=== PATIENT | female | born 1990 | race Caucasian/White ===

== ENCOUNTER 2021-03-07 19:14 | Emergency (ER) | payer OTHER ==
[~2021-03-07] VITALS: Ht 162.6 cm; Wt 57.3 kg
[2021-03-07] MEDS ORDERED: diphenhydrAMINE 50 MG/ML VIAL IVP ONE (19:30)
[2021-03-07] MEDS ORDERED: IV RINGERS SOLUTION,LACTATED 1,000 ML IV ONE (19:30)
[2021-03-07] MEDS ORDERED: METOCLOPRAMIDE HCL 10 MG/2 ML VIAL. IVP ONE (19:30)
--- NOTE | 2021-03-07 19:33 | PHYS DOC ---
Adult General HPI HPI Patient is a otherwise healthy 30-year-old G4, P3 who presents at approximately 6 weeks gestation with a chief complaint of morning sickness/nausea and vomiting. States he has had this with all of her other pregnancies. States it started this morning when she woke up and has not been able to eat because when she smells food she will vomit. States she did not have any medicine at home. States she does have an OB appointment next week. Denies any recent traumas, travels, illnesses, fevers, chest pain, shortness of breath, abdominal pain, dysuria, hematuria, blood in the stool or diarrhea. Denies any vaginal bleeding, discharge or pain. States she is having some nausea and vomiting but no abdominal pain. Review of Systems Review of Systems Constitutional: Denies fever or chills [] Eyes: Denies change in visual acuity, redness, or eye pain [] HENT: Denies nasal congestion or sore throat [] Respiratory: Denies cough or shortness of breath [] Cardiovascular: No additional information not addressed in HPI [] GI: Denies abdominal pain, nausea, vomiting, bloody stools or diarrhea [] : Denies dysuria or hematuria [] Musculoskeletal: Denies back pain or joint pain [] Integument: Denies rash or skin lesions [] Neurologic: Denies headache, focal weakness or sensory changes [] Endocrine: Denies polyuria or polydipsia [] All other systems were reviewed and found to be within normal limits, except as documented in this note. Physical Exam Physical Exam Constitutional: Well developed, well nourished, no acute distress, non-toxic appearance. [] HENT: Normocephalic, atraumatic, oropharynx moist, Eyes: conjunctiva normal, no discharge. [] Neck: Normal range of motion, no tenderness, supple, no stridor. [] Cardiovascular:Heart rate regular rhythm, no murmur [] Lungs & Thorax: Bilateral breath sounds clear to auscultation [] Abdomen: soft, no tenderness, no masses, no pulsatile masses. [] Skin: Warm, dry, no erythema, no rash. [] Back: no CVA tenderness. [] Extremities: No tenderness, no cyanosis, no clubbing, ROM intact, no edema. [] Neurologic: Alert and oriented X 3, normal motor function, normal sensory function, no focal deficits noted. [] Psychologic: Affect normal, judgement normal, mood normal. [] EKG EKG [] Radiology/Procedures Radiology/Procedures [] Heart Score C/O Chest Pain: No Risk Factors: Risk Factors: DM, Current or recent (<one month) smoker, HTN, HLP, family history of CAD, obesity. Risk Scores: Risk Factors: DM, Current or recent (<one month) smoker, HTN, HLP, family history of CAD, obesity. Course & Med Decision Making Course & Med Decision Making Patient is a 30-year-old G4, P3 at 6 weeks who presents with morning sickness/nausea vomiting Vital signs not concerning. Physical exam noted above. Patient placed on monitor with IV access established and IV fluid begun. Given nausea medicine. Urinalysis not concerning. Urine positive. Potassium a little low and replaced. On reassessment patient stated she was feeling better and felt safe to discharge home. Discussed all findings with patient. Given nausea medicine for home. On symptom management. Advised to call [facility] or primary care physician first thing in the morning to update on ED visit and set up a follow-up as soon as possible. Advised him back to the ED with new or concerning symptoms. Patient grateful, verbalized understanding and agreed with plan of discharge. Dragon Disclaimer Dragon Disclaimer This electronic medical record was generated, in whole or in part, using a voice recognition dictation system. Departure Departure: Impression: Primary Impression: Nausea and vomiting during Disposition: 01 HOME / SELF CARE / HOMELESS Condition: GOOD Referrals: PCP,SHREYAS (PCP) KELSEY MORLEY Patient Instructions: Diet - Hyperemesis Gravidarum, Hyperemesis Gravidarum, Nausea and Vomiting Additional Instructions: Thanks for coming into the emergency department tonight and allowing us to take care of you. Please read the attached information carefully to go back over things we discussed for home treatment. Please take your nausea medicine as prescribed. You can add Benadryl as well as this will help with nausea and allow you to sleep. Please call your primary care physician and/or your [facility] first thing in the morning to update on ED visit and set up a follow-up as soon as possible. Please come back to the ED with new or concerning symptoms as discussed. Scripts Metoclopramide Hcl (REGLAN) 10 Mg Tablet 1 TAB PO TID for N/V for 10 Days, #30 TAB 0 Refills before food and bedtime Prov: KATHY SALDANA MD 03/07/21 KATHY SALDANA MD Mar 07, 2021 19:33
[2021-03-07 19:48] VITALS: BP 120/60
[2021-03-07 19:54] LABS: BACTERIA,URINE 0 /HPF (0-FEW); BILIRUBIN,URINE NEG (NEG); CLARITY,URINE HAZY; COLOR,URINE YELLOW; GLUCOSE,URINE NEG (NEG); NITRITE,URINE NEG (NEG); RBC,URINE RARE /HPF (0-2); SQUAMOUS EPITHELIAL CELL,UR MOD /LPF; UROBILINOGEN,URINE 0.2 mg/dL (0.2 mg/dL); WBC,URINE RARE /HPF (0-4)
[2021-03-07 19:56] LABS: CALCIUM 8.9 mg/dL (8.5-10.1); CREATININE 0.5 mg/dL (0.6-1.0); GFR 145.9; POTASSIUM 3.4 mmol/L (3.5-5.1)
[2021-03-07] MEDS ORDERED: METO10TA81 PO (20:24)
[2021-03-07] MEDS ORDERED: POTASSIUM CHLORIDE 20 MEQ TABLET.ER. PO ONE (20:30)
== END 2021-03-07 20:56 | disposition home or self-care (01) ==
LOC: ER 19:14
DX: O21.9 Vomiting of pregnancy, unspecified (principal); Z3A.01 Less than 8 weeks gestation of pregnancy
CPT/HCPCS: 36415; 80048; 81001; 81025; 96361; 96374; 96375; 99284; J1200; J2765; J7120